=== PATIENT | male | born 1935 | race Caucasian/White ===

== ENCOUNTER 2020-04-30 08:43 | Day surgery (SDCO) | payer MEDICARE ==
[~2020-04-30 08:43] MED LIST: ASPIRIN CHEWABL81 MG PO; CEFDINIR300 MG PO; CLARITIN10 MG PO; DULERA 200 MCG8.8 GM INH; DUONEB 2.5-0.5M1 AMP NEB; K-DUR20 MEQ PO; LASIX20 MG PO; LIPITOR20 MG PO; MUCINEX 600MG600 MG PO; NEBULIZER UNIT NEB; NORVASC5 MG PO; PLAVIX75 MG PO; PRAVACHOL40 MG PO; PREDNISONE 10MG10 MG PO; PROTONIX 40MG T40 MG PO; SINGULAIR10 MG PO; SPIRIVA18 MCG INH; ULTRA-LIGHT RO1 EACH XX; VENTOLIN (2.5 MG/3 M INH; VENTOLIN (2.5 MG/3 M NEB
[2020-04-30 09:05] LABS: BASOPHIL 0.5 % (0-2); EOSINOPHIL 0.9 % (0-7); HCT 39.7 % (42.0-52.0); HGB 12.8 g/dl (13.2-18.0); LYMPHOCYTE 13.5 % (15-48); MCH 27.8 pg (25.0-31.0); MCHC 32.2 g/dL (32.0-36.0); MCV 86.3 fL (78.0-100.0); MONOCYTE 6.7 % (0-12); MPV 8.7 fL (6.0-9.5); NEUTROPHIL 76.1 % (41-80); NRBC 0; PLT 274 K/uL (150-400); RDW 15.7 % (11.5-14.0); WBC 13.5 K/uL (4.0-10.5)
[2020-04-30 09:16] LABS: INR 1.21 (0.9-1.2); PROTHROMBIN TIME 14.5 SECONDS (11.4-13.6); PTT 31.9 SECONDS (22.2-34.7)
[2020-04-30 09:17] LABS: D-DIMER 0.83 ug/mLFEU (0.00-0.41)
[2020-04-30 09:27] LABS: LACTIC ACID 2.5 mmol/L (0.4-1.9)
[2020-04-30 09:29] LABS: PRO-BNP 235 pg/mL (<450)
[2020-04-30 09:37] LABS: ALBUMIN 3.3 g/dL (3.4-5.0); BILIRUBIN - TOTAL 0.4 mg/dL (0.2-1.0); BUN/CREAT RATIO (CALC) 15.1 RATIO; C-REACTIVE PROTEIN 8.8 mg/dL (<=0.90); CREATININE 0.86 mg/dL (0.67-1.17); GLOBULIN (CALCULATION) 4.4 g/dL; MAGNESIUM 1.8 mg/dL (1.8-2.4); POTASSIUM 4.3 mmol/L (3.5-5.1); TOTAL PROTEIN 7.7 g/dL (6.4-8.2); URIC ACID 6.2 mg/dL (3.5-7.2)
[2020-04-30 11:07] LABS: BILIRUBIN NEGATIVE (NEGATIVE); BLOOD NEGATIVE Ery/uL (NEGATIVE); CLARITY CLEAR (CLEAR); COLOR YELLOW (YELLOW); GLUCOSE (U) 2+ mg/dL (NORMAL); LEUKOCYTES NEGATIVE Leu/uL (NEGATIVE); NITRITE NEGATIVE (NEGATIVE); PROTEIN NEGATIVE (NEGATIVE); SPECIFIC GRAVITY 1.015 (1.001-1.030); UROBILINOGEN 0.2 mg/dL (0.2-1.0); pH 6.5 (5.0-9.0)
[2020-04-30] MEDS ORDERED: PROTONIX 40MG T40 MG PO (14:10)
[2020-04-30] MEDS ORDERED: NORVASC5 MG PO (14:10)
[2020-04-30] MEDS ORDERED: PLAVIX75 MG PO (14:11)
[2020-04-30] MEDS ORDERED: ELIQUIS5 MG PO (14:12)
[2020-04-30] MEDS ORDERED: LIPITOR20 MG PO (14:12)
[2020-04-30] MEDS ORDERED: K-DUR20 MEQ PO (14:13)
[2020-04-30] MEDS ORDERED: SINGULAIR10 MG PO (14:14)
[2020-04-30] MEDS ORDERED: LASIX20 MG PO (14:14)
[2020-04-30] MEDS ORDERED: SYMBICORT 80-10.2 GM INH (14:16)
[2020-04-30] MEDS ORDERED: IPRAT-ALBUT 0.5-3 ML INH (14:16)
[2020-05-01 05:57] LABS: BASOPHIL 0.2 % (0-2); EOSINOPHIL 0 % (0-7); HCT 35.6 % (42.0-52.0); HGB 11.4 g/dl (13.2-18.0); LYMPHOCYTE 8.5 % (15-48); MCH 27.7 pg (25.0-31.0); MCV 86.4 fL (78.0-100.0); MPV 9.7 fL (6.0-9.5); NEUTROPHIL 82.4 % (41-80); NRBC 0; PLT 266 K/uL (150-400); RBC 4.12 M/uL (4.70-6.00); RDW 15.7 % (11.5-14.0); WBC 13.5 K/uL (4.0-10.5)
[2020-05-01 06:15] LABS: BUN/CREAT RATIO (CALC) 23.3 RATIO; CREATININE 0.73 mg/dL (0.67-1.17); POTASSIUM 4.5 mmol/L (3.5-5.1)
[2020-05-01] MEDS ORDERED: PREDNISONE 20MG20 MG PO (10:35)
[2020-05-01] MEDS ORDERED: COLCHICINE0.6 M1 PO (10:35)
[2020-05-01] MEDS ORDERED: NORCO 5-325 TA1 EACH PO (10:35)
--- NOTE | 2020-05-01 13:32 | NUR ---
PT IS AND OBSERVATION; LIVES WITH A SPOUSE; PT HAS HOME BIBAP;
== END 2020-05-01 11:32 | disposition home or self-care (01) ==
LOC: FER 08:43 → FMS 11:22
PROVIDERS: Emergency Medicine; ADMIT Internal Medicine
DX: M10.9 Gout, unspecified (principal); J44.9 Chronic obstructive pulmonary disease, unspecified; E78.5 Hyperlipidemia, unspecified; M19.90 Unspecified osteoarthritis, unspecified site; K21.9 Gastro-esophageal reflux disease without esophagitis; M50.30 Other cervical disc degeneration, unspecified cervical region; I71.4 Abdominal aortic aneurysm, without rupture; Z85.46 Personal history of malignant neoplasm of prostate; Z86.73 Personal history of transient ischemic attack (TIA), and cerebral infarction without residual deficits; Z87.891 Personal history of nicotine dependence; Z79.01 Long term (current) use of anticoagulants; Z79.02 Long term (current) use of antithrombotics/antiplatelets; Z79.899 Other long term (current) drug therapy; Z95.828 Presence of other vascular implants and grafts; Z20.822 Contact with and (suspected) exposure to COVID-19
CPT/HCPCS: 36415; 36600; 71275; 73120; 80048; 80053; 81003; 82728; 82803; 83036; 83605; 83615; 83735; 83880; 84145; 84443; 84484; 84550; 85025; 85379; 85610; 85730; 86140; 87040; 93005; 94640; 94664; G0378; J0696; J2930; J7030; J7512; Q9967; U0002

== ENCOUNTER 2020-10-14 17:44 | Emergency (ER) | payer MEDICARE ==
[~2020-10-14 17:44] MED LIST changes: +COLCHICINE0.6 M1 PO; +ELIQUIS5 MG PO; +IPRAT-ALBUT 0.5-3 ML INH; +NORCO 5-325 TA1 EACH PO; +PREDNISONE 20MG20 MG PO; +SYMBICORT 80-10.2 GM INH
== END 2020-10-14 19:50 | disposition home or self-care (01) ==
LOC: FER 17:44
DX: S80.01XA Contusion of right knee, initial encounter (principal); J44.9 Chronic obstructive pulmonary disease, unspecified; F17.210 Nicotine dependence, cigarettes, uncomplicated; Z86.79 Personal history of other diseases of the circulatory system; W19.XXXA Unspecified fall, initial encounter; Y92.009 Unspecified place in unspecified non-institutional (private) residence as the place of occurrence of the external cause
CPT/HCPCS: 73564

== ENCOUNTER 2020-11-20 13:37 | Emergency (ER) | payer MEDICARE | END 2020-11-20 15:00 | disposition home or self-care (01) | LOC: FER 13:37 | DX: S93.401A Sprain of unspecified ligament of right ankle, initial encounter (principal); S93.601A Unspecified sprain of right foot, initial encounter; S80.212A Abrasion, left knee, initial encounter; S50.312A Abrasion of left elbow, initial encounter; J44.9 Chronic obstructive pulmonary disease, unspecified; I10 Essential (primary) hypertension; Z88.2 Allergy status to sulfonamides; Y92.009 Unspecified place in unspecified non-institutional (private) residence as the place of occurrence of the external cause; W10.9XXA Fall (on) (from) unspecified stairs and steps, initial encounter | CPT/HCPCS: 73610; 73630 ==

== ENCOUNTER → 2021-05-24 | Day surgery (SDC) | payer MEDICARE ==
[~2021-05-24] VITALS: Ht 177.8 cm; Wt 90.5 kg
[~2021-05-24] MED LIST changes: +ALLOPURINOL 10100 MG PO; +BACTRIM DS TAB1 EACH PO; +BENZONATATE100 MG PO; +BUSPAR5 MG PO; +CENTRUM SILVER1 EAC5 PO; +SPIRIVA 18MCG18 MCG INH; +SYNTHROID25 MCG PO
== END | disposition home or self-care (01) ==
LOC: FAS 06:02
DX: L02.811 Cutaneous abscess of head [any part, except face] (principal); L20.9 Atopic dermatitis, unspecified; I10 Essential (primary) hypertension; F17.200 Nicotine dependence, unspecified, uncomplicated; E78.00 Pure hypercholesterolemia, unspecified; J44.9 Chronic obstructive pulmonary disease, unspecified; G47.33 Obstructive sleep apnea (adult) (pediatric); E03.9 Hypothyroidism, unspecified; F41.9 Anxiety disorder, unspecified; E78.5 Hyperlipidemia, unspecified; K21.9 Gastro-esophageal reflux disease without esophagitis; Z88.2 Allergy status to sulfonamides; Z88.1 Allergy status to other antibiotic agents; Z79.01 Long term (current) use of anticoagulants; Z79.899 Other long term (current) drug therapy; Z79.2 Long term (current) use of antibiotics; Z82.49 Family history of ischemic heart disease and other diseases of the circulatory system
CPT/HCPCS: 87070; 87075; 87205; J7120

== ENCOUNTER 2021-08-09 09:04 | Inpatient (IN) | payer MEDICARE ==
[~2021-08-09] VITALS: Ht 175.3 cm; Wt 83.1 kg
[~2021-08-09 09:04] MED LIST changes: +KLOR-CON M 1010 MEQ PO
[2021-08-09 09:27] LABS: BASOPHIL 0.6 % (0-2); EOSINOPHIL 0 % (0-7); HCT 37.5 % (42.0-52.0); HGB 11.7 g/dl (13.2-18.0); LYMPHOCYTE 7.3 % (15-48); MCH 27.5 pg (25.0-31.0); MCHC 31.2 g/dL (32.0-36.0); MCV 88.2 fL (78.0-100.0); MONOCYTE 12.4 % (0-12); MPV 8.6 fL (6.0-9.5); NEUTROPHIL 77.8 % (41-80); NRBC 0; PLT 341 K/uL (150-400); RBC 4.25 M/uL (4.70-6.00); RDW 17.1 % (11.5-14.0)
[2021-08-09 09:28] LABS: WBC 9.4 K/uL (4.0-10.5)
[2021-08-09 09:39] LABS: INR 1.5 (0.9-1.2); PROTHROMBIN TIME 17.4 SECONDS (11.8-13.4)
[2021-08-09 09:40] LABS: PTT 40.5 SECONDS (24.4-34.7)
[2021-08-09 09:55] LABS: ALBUMIN 3.1 g/dL (3.4-5.0); BILIRUBIN - TOTAL 0.5 mg/dL (0.2-1.0); BUN/CREAT RATIO (CALC) 20.2 RATIO; CREATININE 0.99 mg/dL (0.67-1.17); GLOBULIN (CALCULATION) 4.6 g/dL; POTASSIUM 4.2 mmol/L (3.5-5.1); TOTAL PROTEIN 7.7 g/dL (6.4-8.2)
[2021-08-09 10:07] LABS: LACTIC ACID 1.6 mmol/L (0.4-1.9)
[2021-08-09 11:10] LABS: CORONAVIRUS 2019 SARS-COV-2 NEGATIVE (NEGATIVE); INFLUENZA A NAA NEGATIVE (NEGATIVE)
[2021-08-10 02:59] LABS: BILIRUBIN NEGATIVE (NEGATIVE); BLOOD NEGATIVE Ery/uL (NEGATIVE); CLARITY CLEAR (CLEAR); COLOR YELLOW (YELLOW); GLUCOSE (U) 1+ mg/dL (NORMAL); LEUKOCYTES NEGATIVE Leu/uL (NEGATIVE); NITRITE NEGATIVE (NEGATIVE); PROTEIN 2+ mg/dL (NEGATIVE); SPECIFIC GRAVITY >=1.030 (1.001-1.030); UROBILINOGEN 0.2 mg/dL (0.2-1.0); pH 5.5 (5.0-9.0)
[2021-08-10 03:27] LABS: BACTERIA TRACE
[2021-08-10 05:27] LABS: BASOPHIL 0.4 % (0-2); EOSINOPHIL 0 % (0-7); HCT 33.9 % (42.0-52.0); HGB 10.6 g/dl (13.2-18.0); LYMPHOCYTE 9.1 % (15-48); MCH 28.3 pg (25.0-31.0); MCHC 31.3 g/dL (32.0-36.0); MCV 90.4 fL (78.0-100.0); MONOCYTE 4.3 % (0-12); MPV 9.6 fL (6.0-9.5); NEUTROPHIL 84.6 % (41-80); NRBC 0; PLT 324 K/uL (150-400); RBC 3.75 M/uL (4.70-6.00); RETICULOCYTE COUNT 1.6 % (1.0-2.0)
[2021-08-10 05:28] LABS: WBC 6.9 K/uL (4.0-10.5)
[2021-08-10 06:22] LABS: IRON % SATURATION 6.3 %SAT (20-50)
[2021-08-10 06:52] LABS: ALBUMIN 2.8 g/dL (3.4-5.0); ALKALINE PHOSHATASE 78 U/L (46-116); ALT 33 U/L (16-63); AST 22 U/L (15-37); BILIRUBIN - TOTAL 0.3 mg/dL (0.2-1.0); BUN 29 mg/dL (7-18); BUN/CREAT RATIO (CALC) 31.9 RATIO; CHLORIDE 103 mmol/L (98-107); CO2 (BICARBONATE) 28 mmol/L (21-32); CREATININE 0.91 mg/dL (0.67-1.17); FOLIC ACID (SERUM) 18.3 ng/mL (8.6-58.9); GLOBULIN (CALCULATION) 4.4 g/dL; GLUCOSE 222 mg/dL (74-106); MAGNESIUM 1.9 mg/dL (1.8-2.4); PHOSPHORUS 2.8 mg/dL (2.6-4.7); POTASSIUM 4.1 mmol/L (3.5-5.1); TOTAL PROTEIN 7.2 g/dL (6.4-8.2)
[2021-08-10 06:53] LABS: C-REACTIVE PROTEIN > 18.00 mg/dL (<=0.90)
[2021-08-11 11:57] LABS: BASOPHIL 0.4 % (0-2); EOSINOPHIL 0.1 % (0-7); HCT 35.4 % (42.0-52.0); HGB 10.9 g/dl (13.2-18.0); LYMPHOCYTE 7.9 % (15-48); MCH 27.5 pg (25.0-31.0); MCHC 30.8 g/dL (32.0-36.0); MCV 89.4 fL (78.0-100.0); MONOCYTE 6.9 % (0-12); MPV 8.6 fL (6.0-9.5); NEUTROPHIL 80.7 % (41-80); NRBC 0.4; PLT 314 K/uL (150-400); RBC 3.96 M/uL (4.70-6.00); RDW 17.2 % (11.5-14.0); WBC 9.7 K/uL (4.0-10.5)
[2021-08-11 12:39] LABS: BUN/CREAT RATIO (CALC) 34.4 RATIO; CREATININE 0.9 mg/dL (0.67-1.17); POTASSIUM 4.3 mmol/L (3.5-5.1)
[2021-08-13 06:21] LABS: BASOPHIL 0.9 % (0-2); EOSINOPHIL 0 % (0-7); HCT 36.9 % (42.0-52.0); HGB 11.3 g/dl (13.2-18.0); LYMPHOCYTE 8.5 % (15-48); MCH 27.6 pg (25.0-31.0); MCHC 30.6 g/dL (32.0-36.0); MONOCYTE 5.4 % (0-12); MPV 9.6 fL (6.0-9.5); NEUTROPHIL 77.6 % (41-80); NRBC 0.3; PLT 390 K/uL (150-400); RDW 17.2 % (11.5-14.0); WBC 10.1 K/uL (4.0-10.5)
[2021-08-13 06:56] LABS: ALBUMIN 2.8 g/dL (3.4-5.0); BILIRUBIN - TOTAL 0.4 mg/dL (0.2-1.0); CREATININE 0.77 mg/dL (0.67-1.17); GLOBULIN (CALCULATION) 4.3 g/dL; MAGNESIUM 1.8 mg/dL (1.8-2.4); PHOSPHORUS 2.6 mg/dL (2.6-4.7); POTASSIUM 3.9 mmol/L (3.5-5.1); TOTAL PROTEIN 7.1 g/dL (6.4-8.2)
== END 2021-08-15 17:45 | disposition home health service (06) | DRG 871 ==
LOC: FER 09:04 → FTCU 11:00 → FMS 08-14 09:53
PROVIDERS: Emergency Medicine; ADMIT Internal Medicine
DX: A41.9 Sepsis, unspecified organism (principal); J18.9 Pneumonia, unspecified organism; J96.21 Acute and chronic respiratory failure with hypoxia; J96.22 Acute and chronic respiratory failure with hypercapnia; E87.2 Acidosis; I48.20 Chronic atrial fibrillation, unspecified; J44.1 Chronic obstructive pulmonary disease with (acute) exacerbation; J44.0 Chronic obstructive pulmonary disease with (acute) lower respiratory infection; D50.9 Iron deficiency anemia, unspecified; R65.20 Severe sepsis without septic shock; Z20.822 Contact with and (suspected) exposure to COVID-19; C44.42 Squamous cell carcinoma of skin of scalp and neck; S00.03XA Contusion of scalp, initial encounter; W06.XXXA Fall from bed, initial encounter; K21.9 Gastro-esophageal reflux disease without esophagitis; F17.210 Nicotine dependence, cigarettes, uncomplicated; E78.5 Hyperlipidemia, unspecified; I25.10 Atherosclerotic heart disease of native coronary artery without angina pectoris; I10 Essential (primary) hypertension; Z99.81 Dependence on supplemental oxygen; Z79.01 Long term (current) use of anticoagulants; Z85.46 Personal history of malignant neoplasm of prostate; Z92.3 Personal history of irradiation; Z88.1 Allergy status to other antibiotic agents; Z79.899 Other long term (current) drug therapy; Z79.02 Long term (current) use of antithrombotics/antiplatelets
CPT/HCPCS: 36415; 36600; 70450; 71045; 80048; 80053; 81001; 82607; 82728; 82746; 82803; 83540; 83550; 83605; 83735; 83880; 84100; 84145; 84484; 85025; 85610; 85730; 86140; 87040; 87070; 87088; 87205; 93005; 94010; 94640; 94667; 94668; 94760; 94762; 97116; 97162; 97166; 97530; 97530-GP; 97535; J0456; J1100; J2543; J2916; J2930; J7040; J7050; J7512; U0002

== ENCOUNTER 2021-10-04 10:14 | Emergency (ER) | payer MEDICARE ==
[2021-10-04 11:26] LABS: BASOPHIL 0.7 % (0-2); EOSINOPHIL 0.5 % (0-7); HCT 37.8 % (42.0-52.0); HGB 12.1 g/dl (13.2-18.0); LYMPHOCYTE 14.4 % (15-48); MCH 29.2 pg (25.0-31.0); MCV 91.3 fL (78.0-100.0); MPV 9.2 fL (6.0-9.5); NEUTROPHIL 71.2 % (41-80); NRBC 0; PLT 320 K/uL (150-400); RBC 4.14 M/uL (4.70-6.00); RDW 18.4 % (11.5-14.0); WBC 5.8 K/uL (4.0-10.5)
[2021-10-04 11:51] LABS: ALBUMIN 3.4 g/dL (3.4-5.0); BILIRUBIN - TOTAL 0.4 mg/dL (0.2-1.0); BUN/CREAT RATIO (CALC) 17.3 RATIO; C-REACTIVE PROTEIN 14.2 mg/dL (<=0.90); CREATININE 0.75 mg/dL (0.67-1.17); FT4 (FREE T4) 0.9 ng/dL (0.76-1.46); GLOBULIN (CALCULATION) 3.8 g/dL; POTASSIUM 3.5 mmol/L (3.5-5.1); TOTAL PROTEIN 7.2 g/dL (6.4-8.2)
[2021-10-04 11:55] LABS: IRON % SATURATION 7.1 %SAT (20-50)
[2021-10-04 12:16] LABS: CORONAVIRUS 2019 SARS-COV-2 NEGATIVE (NEGATIVE); INFLUENZA A NAA NEGATIVE (NEGATIVE)
[2021-10-04 12:20] LABS: LACTIC ACID 1.8 mmol/L (0.4-1.9)
== END 2021-10-04 16:04 | disposition home or self-care (01) ==
LOC: FER 10:14
PROVIDERS: Emergency Medicine
DX: E61.1 Iron deficiency (principal); J44.9 Chronic obstructive pulmonary disease, unspecified; E11.9 Type 2 diabetes mellitus without complications; Z20.822 Contact with and (suspected) exposure to COVID-19
CPT/HCPCS: 36415; 71250; 80053; 82728; 83540; 83550; 83605; 83735; 83880; 84145; 84439; 84443; 84484; 85025; 86140; 87040; 93005; 94640; 94664; J2930; J3475; U0002

== ENCOUNTER 2021-10-07 10:11 | Emergency (ER) | payer MEDICARE ==
[2021-10-07 12:01] LABS: BILIRUBIN NEGATIVE (NEGATIVE); BLOOD NEGATIVE Ery/uL (NEGATIVE); CLARITY CLEAR (CLEAR); COLOR YELLOW (YELLOW); GLUCOSE (U) NORMAL (NORMAL); LEUKOCYTES NEGATIVE Leu/uL (NEGATIVE); NITRITE NEGATIVE (NEGATIVE); PROTEIN NEGATIVE (NEGATIVE)
[2021-10-07 12:01] LABS: BASOPHIL 0.9 % (0-2); EOSINOPHIL 0.6 % (0-7); HCT 38.5 % (42.0-52.0); HGB 12.4 g/dl (13.2-18.0); LYMPHOCYTE 13.1 % (15-48); MCH 29.2 pg (25.0-31.0); MCHC 32.2 g/dL (32.0-36.0); MCV 90.8 fL (78.0-100.0); MONOCYTE 8.7 % (0-12); MPV 8.6 fL (6.0-9.5); NEUTROPHIL 74.6 % (41-80); NRBC 0; PLT 342 K/uL (150-400); RBC 4.24 M/uL (4.70-6.00); RDW 18.3 % (11.5-14.0); WBC 6.7 K/uL (4.0-10.5)
[2021-10-07 12:15] LABS: INR 1.27 (0.9-1.2); PROTHROMBIN TIME 15.2 SECONDS (11.8-13.4); PTT 30.9 SECONDS (24.4-34.7)
[2021-10-07 12:23] LABS: ALBUMIN 3.1 g/dL (3.4-5.0); BILIRUBIN - TOTAL 0.2 mg/dL (0.2-1.0); BUN/CREAT RATIO (CALC) 25.7 RATIO; CREATININE 0.7 mg/dL (0.67-1.17); GLOBULIN (CALCULATION) 3.5 g/dL; TOTAL PROTEIN 6.6 g/dL (6.4-8.2)
== END 2021-10-07 15:13 | disposition home or self-care (01) ==
LOC: FER 10:11 → FMS 13:36 → FER 13:36 → FMS 15:13
PROVIDERS: Emergency Medicine
DX: S06.0X0A Concussion without loss of consciousness, initial encounter (principal); R53.1 Weakness; F17.210 Nicotine dependence, cigarettes, uncomplicated; R29.6 Repeated falls; Z20.822 Contact with and (suspected) exposure to COVID-19; W19.XXXA Unspecified fall, initial encounter; Y92.009 Unspecified place in unspecified non-institutional (private) residence as the place of occurrence of the external cause
CPT/HCPCS: 36415; 70450; 71250; 72125; 80053; 81003; 82550; 84484; 85025; 85610; 85730; 93005; U0002

== ENCOUNTER 2021-10-11 07:31 | Inpatient (IN) | payer MEDICARE ==
[~2021-10-11] VITALS: Ht 175.3 cm; Wt 77.3 kg
[2021-10-11 07:52] LABS: BASOPHIL 0.4 % (0-2); EOSINOPHIL 0.2 % (0-7); HCT 38.1 % (42.0-52.0); HGB 12.6 g/dl (13.2-18.0); LYMPHOCYTE 5.6 % (15-48); MCH 29.5 pg (25.0-31.0); MCHC 33.1 g/dL (32.0-36.0); MCV 89.2 fL (78.0-100.0); MPV 8.7 fL (6.0-9.5); NEUTROPHIL 85.9 % (41-80); NRBC 0; PLT 337 K/uL (150-400); RBC 4.27 M/uL (4.70-6.00); RDW 17.9 % (11.5-14.0); WBC 15.8 K/uL (4.0-10.5)
[2021-10-11 08:15] LABS: ALBUMIN 3.4 g/dL (3.4-5.0); BILIRUBIN - TOTAL 0.6 mg/dL (0.2-1.0); BUN/CREAT RATIO (CALC) 27.5 RATIO; CREATININE 0.69 mg/dL (0.67-1.17); GLOBULIN (CALCULATION) 3.2 g/dL; POTASSIUM 4.4 mmol/L (3.5-5.1); TOTAL PROTEIN 6.6 g/dL (6.4-8.2)
[2021-10-11 08:17] LABS: BILIRUBIN NEGATIVE (NEGATIVE); BLOOD NEGATIVE Ery/uL (NEGATIVE); CLARITY CLEAR (CLEAR); COLOR YELLOW (YELLOW); GLUCOSE (U) NORMAL (NORMAL); LEUKOCYTES NEGATIVE Leu/uL (NEGATIVE); NITRITE NEGATIVE (NEGATIVE); PROTEIN NEGATIVE (NEGATIVE); SPECIFIC GRAVITY 1.015 (1.001-1.030); pH 7.5 (5.0-9.0)
[2021-10-11 08:25] LABS: TOTAL CELL COUNT 100
[2021-10-11 08:26] LABS: BAND 2 % (0-10); LYMPHOCYTE(M) 3 % (15-48); MONOCYTE(M) 5 % (0-12); NEUTROPHILS(M) 90 % (41-80); PLATELET ESTIMATE NORMAL; PLATELET MORPHOLOGY NORMAL
[2021-10-11 08:27] LABS: HYPERSEGMENTED NEUTROPHILS PRESENT
[2021-10-11 08:30] LABS: CORONAVIRUS 2019 SARS-COV-2 NEGATIVE (NEGATIVE); INFLUENZA A NAA NEGATIVE (NEGATIVE)
[2021-10-11 08:42] LABS: LACTIC ACID 1.6 mmol/L (0.4-1.9)
[2021-10-11] MEDS ORDERED: COMPAZINE10 MG PO (13:11)
[2021-10-11] MEDS ORDERED: HYDROXYZINE HCL25 MG PO (13:15)
[2021-10-12 05:50] LABS: HCT 33.4 % (42.0-52.0); HGB 11.1 g/dl (13.2-18.0); MCH 29.8 pg (25.0-31.0); MCHC 33.2 g/dL (32.0-36.0); MCV 89.8 fL (78.0-100.0); MPV 8.5 fL (6.0-9.5); RBC 3.72 M/uL (4.70-6.00); RDW 17.6 % (11.5-14.0); WBC 13.8 K/uL (4.0-10.5)
[2021-10-12 06:06] LABS: IRON % SATURATION 20.6 %SAT (20-50)
[2021-10-12 07:59] LABS: BUN/CREAT RATIO (CALC) 28.6 RATIO; CREATININE 0.63 mg/dL (0.67-1.17); POTASSIUM 4.1 mmol/L (3.5-5.1)
[2021-10-13 05:44] LABS: HCT 34.8 % (42.0-52.0); HGB 11.3 g/dl (13.2-18.0); MCH 29.4 pg (25.0-31.0); MCHC 32.5 g/dL (32.0-36.0); MCV 90.6 fL (78.0-100.0); MPV 9.2 fL (6.0-9.5); RBC 3.84 M/uL (4.70-6.00); RDW 17.8 % (11.5-14.0); WBC 10.5 K/uL (4.0-10.5)
[2021-10-13 06:10] LABS: BUN/CREAT RATIO (CALC) 27.9 RATIO; CREATININE 0.68 mg/dL (0.67-1.17); POTASSIUM 3.8 mmol/L (3.5-5.1)
[2021-10-14 06:54] LABS: HCT 36.1 % (42.0-52.0); HGB 11.5 g/dl (13.2-18.0); MCH 28.8 pg (25.0-31.0); MCHC 31.9 g/dL (32.0-36.0); MCV 90.3 fL (78.0-100.0); MPV 9.6 fL (6.0-9.5); RDW 17.2 % (11.5-14.0); WBC 6.4 K/uL (4.0-10.5)
[2021-10-14 07:09] LABS: BUN/CREAT RATIO (CALC) 27.1 RATIO; CREATININE 0.59 mg/dL (0.67-1.17); POTASSIUM 3.7 mmol/L (3.5-5.1)
[2021-10-15 06:08] LABS: HCT 34.4 % (42.0-52.0); HGB 11.2 g/dl (13.2-18.0); MCH 29.1 pg (25.0-31.0); MCHC 32.6 g/dL (32.0-36.0); MCV 89.4 fL (78.0-100.0); MPV 8.9 fL (6.0-9.5); RBC 3.85 M/uL (4.70-6.00); RDW 17.1 % (11.5-14.0); WBC 5.8 K/uL (4.0-10.5)
[2021-10-15 06:29] LABS: BUN/CREAT RATIO (CALC) 24.6 RATIO; CREATININE 0.57 mg/dL (0.67-1.17); POTASSIUM 3.5 mmol/L (3.5-5.1)
[2021-10-16 07:06] LABS: BUN/CREAT RATIO (CALC) 27.1 RATIO; C-REACTIVE PROTEIN 2.1 mg/dL (<=0.90); CREATININE 0.59 mg/dL (0.67-1.17); POTASSIUM 3.6 mmol/L (3.5-5.1)
== END 2021-10-16 17:52 | DRG 871 ==
LOC: FER 07:31 → FTCU 09:24 → FMS 10-13 17:59
PROVIDERS: Emergency Medicine; ADMIT Family Medicine
PROC: 3E03329 Introduction of Other Anti-infective into Peripheral Vein, Percutaneous Approach (ICD-10-PCS; 2021-10-11)
PROC: B24BZZZ Ultrasonography of Heart with Aorta (ICD-10-PCS; principal; 2021-10-14)
PROC: 02HV33Z Insertion of Infusion Device into Superior Vena Cava, Percutaneous Approach (ICD-10-PCS; 2021-10-16)
DX: A41.1 Sepsis due to other specified staphylococcus (principal); J18.9 Pneumonia, unspecified organism; J96.21 Acute and chronic respiratory failure with hypoxia; G93.41 Metabolic encephalopathy; J44.1 Chronic obstructive pulmonary disease with (acute) exacerbation; J44.0 Chronic obstructive pulmonary disease with (acute) lower respiratory infection; J98.11 Atelectasis; D84.9 Immunodeficiency, unspecified; R65.20 Severe sepsis without septic shock; Z20.822 Contact with and (suspected) exposure to COVID-19; A41.59 Other Gram-negative sepsis; I48.91 Unspecified atrial fibrillation; D64.9 Anemia, unspecified; E11.65 Type 2 diabetes mellitus with hyperglycemia; R91.1 Solitary pulmonary nodule; C44.42 Squamous cell carcinoma of skin of scalp and neck; I25.10 Atherosclerotic heart disease of native coronary artery without angina pectoris; E03.9 Hypothyroidism, unspecified; E78.5 Hyperlipidemia, unspecified; I10 Essential (primary) hypertension; K80.20 Calculus of gallbladder without cholecystitis without obstruction; F17.210 Nicotine dependence, cigarettes, uncomplicated; Z79.84 Long term (current) use of oral hypoglycemic drugs; Z83.3 Family history of diabetes mellitus; Z82.49 Family history of ischemic heart disease and other diseases of the circulatory system; Z79.899 Other long term (current) drug therapy; Z82.5 Family history of asthma and other chronic lower respiratory diseases; Z92.3 Personal history of irradiation; Z92.21 Personal history of antineoplastic chemotherapy; Z85.46 Personal history of malignant neoplasm of prostate; Z99.81 Dependence on supplemental oxygen
CPT/HCPCS: 36415; 36600; 71045; 71250; 76705; 80048; 80053; 80202; 81003; 82550; 82607; 82803; 83036; 83540; 83550; 83605; 84145; 86140; 87040; 87070; 87077; 87088; 87186; 87205; 93005; 94010; 94640; 94664; 94760; 94762; 96365; 96368; 96375; 97110; 97116; 97162; 97166; 97535; J0692; J0878; J2543; J2930; J3370; J3475; J7030; J7050; J7512; U0002